=== PATIENT | male | born 1960 | race Caucasian/White ===

== ENCOUNTER → 2021-06-20 | Outpatient (CLI) | payer OTHER ==
[~2021-06-20] MED LIST: COQ-10100 MG PO; PLAVIX 75 MG TA75 MG PO; PRAVACHOL 20 MG20 M1 PO; VITAMIN D3250 MC2 PO; VITCB500GO PO; ZINC30 M1 PO
== END ==
LOC: LAB 08:33
PROVIDERS: ATTEND Student in an Organized Health Care Education/Training Program
DX: U07.1 COVID-19 (principal)